=== PATIENT | female | born 1970 | race Caucasian/White ===

== ENCOUNTER 2022-02-19 22:03 | Emergency (ER) | payer OTHER ==
[~2022-02-19 22:03] MED LIST: DIFLUCAN150 MG PO; MYCOSTATIN POWD15 GM TOP; NAPROXEN500 MG PO
[2022-02-19 23:29] LABS: HEMOGLOBIN 13.5 gm/dl (12.3-15.3); RED BLOOD COUNT 4.21 M/UL (4.00-5.10); WHITE BLOOD COUNT 7.7 K/UL (4.5-11.0)
[2022-02-19 23:56] LABS: BUN/CREATININE RATIO 22 (0-10)
== END 2022-02-20 00:40 | disposition left against medical advice (07) ==
LOC: ER1 22:03
PROVIDERS: Family Medicine
DX: R07.9 Chest pain, unspecified (principal); Z90.49 Acquired absence of other specified parts of digestive tract; Z88.0 Allergy status to penicillin; F17.200 Nicotine dependence, unspecified, uncomplicated
CPT/HCPCS: 71045; 80053; 82550; 82553; 84484; 85025; 85379; 93005; 99283; Q9967